=== PATIENT | male | born 1955 | race Caucasian/White ===

== ENCOUNTER → 2018-09-28 | Outpatient (CLI) | payer BC | LOC: CARD 08:45 | PROVIDERS: ATTEND Internal Medicine Cardiovascular Disease | DX: R42 Dizziness and giddiness (principal); I51.7 Cardiomegaly | CPT/HCPCS: 93306; 93351 ==

== ENCOUNTER → 2019-10-04 | Outpatient (CLI) | payer BC | LOC: LABNPT 19:01 | PROVIDERS: ATTEND Nurse Practitioner Family | DX: Z01.89 Encounter for other specified special examinations (principal) | CPT/HCPCS: 86141 ==

== ENCOUNTER → 2020-04-25 | Outpatient (CLI) | payer OTHER ==
[~2020-04-25] VITALS: Ht 182.9 cm; Wt 94.1 kg
[~2020-04-25] MED LIST: LIDOCAINE 1% INJ 20 ML 20 ML VIAL INJ ONE
--- NOTE | 2020-04-25 10:43 | Diagnostic Imaging Report ---
INDICATION: Left lobe thyroid nodule. Patient presents for ultrasound-guided fine-needle aspiration. Patient brought to the procedure room and placed on table in the supine position. Ultrasound imaging of the left neck was performed to evaluate appropriate entry site. Left neck was then prepped and draped in usual sterile fashion. Small amount of 1% lidocaine was utilized for local anesthesia. A total of 4 passes were made into the circumscribed nodule in the mid left lobe of the thyroid utilizing 25-gauge needles and fine-needle aspiration technique. A needle was withdrawn and hemostasis was obtained. Patient tolerated the procedure well and left Department in stable condition. IMPRESSION: Successful ultrasound-guided fine-needle aspiration of left lobe thyroid nodule. Pathology results are currently pending. Dictated by: Dictated on workstation # [id number]
== END ==
LOC: RAD 08:54
PROVIDERS: ATTEND Family Medicine
DX: E04.1 Nontoxic single thyroid nodule (principal)

== ENCOUNTER → 2022-10-14 | Outpatient (RCR) | payer OTHER | END | disposition home or self-care (01) | PROVIDERS: ATTEND Nurse Practitioner Family | DX: M25.531 Pain in right wrist (principal) ==

== ENCOUNTER 2022-11-06 08:18 | Outpatient (RCR) | payer OTHER | END 2022-11-14 | disposition home or self-care (01) | PROVIDERS: ATTEND Nurse Practitioner Family | DX: M25.531 Pain in right wrist (principal); I10 Essential (primary) hypertension ==

== ENCOUNTER 2022-11-27 08:45 | Outpatient (RCR) | payer OTHER | END 2022-11-27 14:00 | disposition home or self-care (01) | PROVIDERS: ATTEND Nurse Practitioner Family | DX: M25.531 Pain in right wrist (principal) ==